=== PATIENT | female | born 1985 ===

== ENCOUNTER 2017-07-31 14:36 | Inpatient (IN) | payer BC ==
[~2017-07-31] VITALS: Ht 167.6 cm; Wt 96.0 kg
--- NOTE | 2017-08-02 09:12 | PR ---
[facility] [address] [place], [place] [address] Signed PP Progress Notes Datetime Report Generated by JEFFRY: 08/02/2017 09:12 SUBJECTIVE: [id number] Pain: Within normal limits Vital Signs: [id number] Vital Signs: Reviewed; Within Normal Limits EXAM: [id number] Cardiovascular: Not Done Respiratory: Not Done Abdomen/Uterus: Abnormal Lochia: Normal Vulva/Perineum: Not Done Breasts: Not Done CVA Tenderness: Not Done Extremities: Normal Incision: Not Applicable Progress: Normal Exam Comments: Fundus firm, NT @ U-1. H/H 9.7/28.8, WBC 9.5, plat 152k IMPRESSION/PLAN/PROCEDURES: [id number] Impression: Normal progression Plan: Continue present management Progress Notes: Doing well. Will continue observation today. Signing Physician: Fifi Bridges MD CC: *Electronically Signed* 08/02/17911 FIFI BRIDGES MD PATIENT NAME: DONG SCHMITT PROGRESS NOTE DATE OF : 83 PHYSICIAN: FIFI BRIDGES MD RPT #: [id number] REPORT IS CONFIDENTIAL AND NOT TO BE RELEASED WITHOUT AUTHORIZATION
== END 2017-08-03 12:55 | disposition home or self-care (01) | DRG 775 ==
LOC: FBC 08-01 00:07
PROVIDERS: ADMIT Obstetrics & Gynecology
PROC: 10E0XZZ Delivery of Products of Conception, External Approach (ICD-10-PCS; principal; 2017-08-01)
PROC: 3E0P7VZ Introduction of Hormone into Female Reproductive, Via Natural or Artificial Opening (ICD-10-PCS; principal; 2017-08-01)
PROC: 10907ZC Drainage of Amniotic Fluid, Therapeutic from Products of Conception, Via Natural or Artificial Opening (ICD-10-PCS; principal; 2017-08-01)
PROC: 0KQM0ZZ Repair Perineum Muscle, Open Approach (ICD-10-PCS; principal; 2017-08-01)
PROC: 00HU33Z Insertion of Infusion Device into Spinal Canal, Percutaneous Approach (ICD-10-PCS; 2017-08-01)
PROC: 3E0R3BZ Introduction of Anesthetic Agent into Spinal Canal, Percutaneous Approach (ICD-10-PCS; 2017-08-01)
DX: O36.63X0 Maternal care for excessive fetal growth, third trimester, not applicable or unspecified (principal); Z3A.38 38 weeks gestation of pregnancy; Z37.0 Single live birth; O70.1 Second degree perineal laceration during delivery
CPT/HCPCS: 01960; 36415; 82803; 85027; J2210; J2590; J2795; J7120